=== PATIENT | female | born 1980 | race Hispanic/Latino ===

== ENCOUNTER 2016-10-09 14:36 | Emergency (ER) | payer MEDICARE ==
[2016-10-09 16:16] LABS: Basophils % (Auto) 0.7 % (0.0-1.8); Eosinophils % (Auto) 2.5 % (0.0-4.3); Hematocrit 37.1 % (30.3-42.9); Hemoglobin 12.5 gm/dl (10.1-14.3); Mean Corpuscular HGB Conc 34 % (30-34); Mean Corpuscular Hemoglobin 33 pg (28-32); Mean Corpuscular Volume 97 fl (79-97); Platelet Count 174 K/mm3 (140-440); Red Blood Count 3.81 M/mm3 (3.65-5.03); Red Cell Distribution Width 13.3 % (13.2-15.2); White Blood Count 5.1 K/mm3 (4.5-11.0)
[2016-10-09 16:17] LABS: BUN/Creatinine Ratio 17.14; Blood Urea Nitrogen 12 mg/dL (7-17); Calcium 9.1 mg/dL (8.4-10.2); Carbon Dioxide 24 mmol/L (22-30); Chloride 102.3 mmol/L (98-107); Glucose 88 mg/dL (65-100); Sodium 140 mmol/L (137-145)
[2016-10-09 16:33] LABS: Anion Gap 18 mmol/L; Potassium 4.6 mmol/L (3.6-5.0)
[2016-10-09 20:52] VITALS: BP 151/93
--- NOTE | 2016-10-09 21:46 | Emergency Department Report ---
ED Chest Pain HPI - General Chief Complaint: Chest Pain Stated Complaint: CHEST PAIN/ELEVATED BP/HOLE IN MITRAL VALVE Time Seen by Provider: 10/09/16 21:27 Source: patient Mode of arrival: Ambulatory Limitations: No Limitations - History of Present Illness Initial Comments: 36-year-old female with past medical history of hypertension presents to ED complaining of chest pain. Onset of pain study 1 day prior to ED arrival. Patient's eighth pain is anterior chest wall, constant, nonradiating, no relaxants and no worsening factors. Pt states she beleives she has this chest pain because she has not been able to take her clonidine 0.1 mg for her blood pressure secondary to running out of the medication. Pt has no history of : MS, DVT/PE. MD Complaint: chest pain -: Gradual Onset: during rest Pain Radiation: none Severity scale (0 -10): 6 Quality: aching Consistency: constant Improves With: nothing Worsens With: nothing - Related Data Allergies Allergy/AdvReac Type Severity Reaction Status Date / Time Penicillins Allergy Rash Verified 10/09/16 15:33 codeine AdvReac HEART Verified 10/09/16 15:33 PALPITATIONS Heart Score - HEART Score History: Slightly suspicious EKG: Normal Age: < 45 Risk factors: No known risk factors Troponin: < normal limit HEART Score: 0 ED Review of Systems ROS: Stated complaint: CHEST PAIN/ELEVATED BP/HOLE IN MITRAL VALVE Other details as noted in HPI Constitutional: denies: chills, fever Eyes: denies: eye pain, eye discharge, vision change ENT: denies: ear pain, throat pain Respiratory: denies: cough, shortness of breath, wheezing Cardiovascular: chest pain. denies: palpitations Endocrine: no symptoms reported Gastrointestinal: denies: abdominal pain, nausea, diarrhea Genitourinary: denies: urgency, dysuria, discharge Musculoskeletal: denies: back pain, joint swelling, arthralgia Skin: denies: rash, lesions Neurological: denies: headache, weakness, paresthesias Psychiatric: denies: anxiety, depression Hematological/Lymphatic: denies: easy bleeding, easy bruising ED Past Medical Hx - Past Medical History Additional medical history: FIBROMYALGIA. POLYMYOSITIS. SUBSTANCE ABUSE ( METHAMPH / ALCOHOL / HEROIN). MITRAL VALVE PROLAPSE - Surgical History Hx Cholecystectomy: Yes Additional Surgical History: PANCREATIC STENT AND REMOVAL - Social History Smoking Status: Current Every Day Smoker Substance Use Type: None ED Physical Exam - General Limitations: No Limitations General appearance: alert, in no apparent distress - Head Head exam: Present: atraumatic, normocephalic - Eye Eye exam: Present: normal appearance - ENT ENT exam: Present: mucous membranes moist - Neck Neck exam: Present: normal inspection - Respiratory Respiratory exam: Present: normal lung sounds bilaterally. Absent: respiratory distress - Cardiovascular Cardiovascular Exam: Present: regular rate, normal rhythm. Absent: systolic murmur, diastolic murmur, rubs, gallop - GI/Abdominal GI/Abdominal exam: Present: soft, normal bowel sounds - Extremities Exam Extremities exam: Present: normal inspection, other (negative lower extremity swelling, negative DVT exam ). Absent: calf tenderness - Back Exam Back exam: Present: normal inspection - Neurological Exam Neurological exam: Present: alert, oriented X3 - Psychiatric Psychiatric exam: Present: normal affect, normal mood - Skin Skin exam: Present: warm, dry, intact, normal color. Absent: rash ED Course Vital Signs 10/09/16 10/09/16 10/09/16 15:25 20:15 20:21 Temperature 98.4 F Pulse Rate 93 H 100 H Respiratory 17 19 Rate Blood Pressure 151/104 157/102 O2 Sat by Pulse 98 99 99 Oximetry 10/09/16 10/09/16 10/09/16 20:30 20:41 20:52 Temperature Pulse Rate 98 H 100 H Respiratory 16 27 H 18 Rate Blood Pressure 151/93 151/93 O2 Sat by Pulse 98 98 100 Oximetry ED Medical Decision Making - Lab Data Result diagrams: 10/09/16 15:40 10/09/16 15:40 - EKG Data -: EKG Interpreted by Me EKG shows normal: sinus rhythm (88), axis (normal ), intervals - EKG Data Interpretation: no acute changes, normal EKG - Radiology Data interpreted by me: Patient left AMA before I could order a chest x-ray - Medical Decision Making 36-year-old female presenting to the ED complaining of chest pain. She stated she was staying at a [facility] for patients with chemical dependence (alcohol, and methamphetamines for my patient) and mental health disorders. She states if she did not leave the ER immediately, she would not be able to get her nighttime meds and get back into the lodge. Patient insisting she had to leave against medical advise before workup was complete. Patient is a AAOX4, largely intact, understands that if she was before the workup was complete this Devastating impact on her health however she continues to state she must leave now. Patient is aware she can seek immediate medical attention for any point and return to ED. - Differential Diagnosis PE, PNA, ACS Critical care attestation.: If time is entered above; I have spent that time in minutes in the direct care of this critically ill patient, excluding procedure time. ED Disposition Clinical Impression: Chest pain Disposition: DC-07 LEFT AGAINST MED ADVICE Is pt being admited?: No Does the pt Need Aspirin: No Condition: Stable Instructions: Chest Pain (ED) Referrals: PRIMARY CARE, [Primary Care Provider] - 3-5 Days
== END 2016-10-09 22:20 | disposition left against medical advice (07) ==
LOC: ED 14:36
DX: R07.89 Other chest pain (principal); I10 Essential (primary) hypertension; F17.200 Nicotine dependence, unspecified, uncomplicated; F11.10 Opioid abuse, uncomplicated; M79.7 Fibromyalgia; Z88.0 Allergy status to penicillin; Z88.5 Allergy status to narcotic agent
CPT/HCPCS: 36415; 80048; 84484; 85025; 93005; 93010

== ENCOUNTER 2016-10-21 10:02 | Emergency (ER) | payer MEDICARE ==
[2016-10-21 10:11] VITALS: BP 154/112
== END 2016-10-21 12:25 | disposition left against medical advice (07) ==
LOC: ED 10:02
DX: R05 Cough (principal); Z53.21 Procedure and treatment not carried out due to patient leaving prior to being seen by health care provider